=== PATIENT | male | born 1955 | race Hispanic/Latino ===

== ENCOUNTER 2019-05-15 14:53 | Emergency (ER) | payer MEDICARE ==
[~2019-05-15] VITALS: Ht 182.9 cm; Wt 77.1 kg
[~2019-05-15 14:53] MED LIST: AMLODIPINE BESYL5 MG PEG; DUO NEB; LACTULOSE; NIFEDIPINE PO; NOVOLOG 3M100 UNITS/; NOVOLOG MIX 70-33 M1; PHENERGAN25 M3 PO; PROVENTIL INH; Z.0.AMLODIPINE BESY1 PO; Z.0.CLONIDINE HCL0.2 PO; Z.0.HYDRALAZINE HCL2 GT; Z.0.LASIX40 MG PO; Z.0.LEVAQUIN500 MG PO; Z.0.LIPITOR40 MG PO; Z.0.PRAVACHOL20 MG PO; Z.0.REGLAN10 MG PO; [UNRECOGNIZED DRUG - OTHER] IM; [UNRECOGNIZED DRUG - OTHER] PO; [UNRECOGNIZED DRUG - OTHER] RC
== END 2019-05-15 15:38 | disposition left against medical advice (07) ==
LOC: ER 14:53
DX: N28.1 Cyst of kidney, acquired (principal)

== ENCOUNTER 2023-11-06 23:27 | Emergency (ER) | payer MEDICARE ==
[~2023-11-06] VITALS: Ht 182.9 cm; Wt 77.1 kg
[~2023-11-06 23:27] MED LIST changes: +CEFPODOXIME PR200 MG PO
[2023-11-07] MEDS ORDERED: HYDROCODONE/APAP 5MG-325MG TAB PO ONE
[2023-11-07] MEDS ORDERED: ONDANSETRON HCL 4 MG ORAL DISINTEGRATING TAB PO ONE
[2023-11-07] MEDS ORDERED: ONDANSETRON ODT4 MG PO (00:06)
[2023-11-07] MEDS ORDERED: COLACE100 M1 PO (00:06)
[2023-11-07] MEDS ORDERED: HYDROCODON-ACE1 EA12 PO ×2 (00:06→00:07)
[2023-11-07] MEDS ORDERED: IBUPROFEN200 MG PO (00:06)
[2023-11-07] MEDS ORDERED: ONDANSETRON HCL 4 MG ORAL DISINTEGRATING TAB ONE (00:51)
[2023-11-07] MEDS ORDERED: HYDROCODONE/APAP 5MG-325MG TAB ONE (00:51)
[2023-11-07 01:15] VITALS: BP 125/63; PULSE 52; RESP 18; TEMP 97.8; O2SAT 100
== END 2023-11-07 01:15 | disposition home or self-care (01) ==
LOC: FSED 23:33
DX: M47.816 Spondylosis without myelopathy or radiculopathy, lumbar region (principal); I69.354 Hemiplegia and hemiparesis following cerebral infarction affecting left non-dominant side; I12.0 Hypertensive chronic kidney disease with stage 5 chronic kidney disease or end stage renal disease; E11.22 Type 2 diabetes mellitus with diabetic chronic kidney disease; N18.6 End stage renal disease; Z99.2 Dependence on renal dialysis; K21.9 Gastro-esophageal reflux disease without esophagitis; E78.00 Pure hypercholesterolemia, unspecified
CPT/HCPCS: 74176; 99283; Q0162

== ENCOUNTER 2024-09-26 23:44 | Emergency (ER) | payer MEDICARE ==
[~2024-09-26] VITALS: Ht 182.9 cm; Wt 77.1 kg
[~2024-09-26 23:44] MED LIST changes: +COLACE100 M1 PO; +HYDROCODON-ACE1 EA12 PO; +IBUPROFEN200 MG PO; +ONDANSETRON ODT4 MG PO
[2024-09-26 23:49] VITALS: PULSE 80; RESP 18; TEMP 98.3
[2024-09-27] MEDS ORDERED: CLEOCIN HCL150 MG PO (00:16)
[2024-09-27 00:20] VITALS: BP 145/65; PULSE 80; RESP 18; TEMP 98.3; O2SAT 98
== END 2024-09-27 00:28 | disposition home or self-care (01) ==
LOC: FSED 09-27 00:04
DX: K04.7 Periapical abscess without sinus (principal); K12.2 Cellulitis and abscess of mouth; I12.9 Hypertensive chronic kidney disease with stage 1 through stage 4 chronic kidney disease, or unspecified chronic kidney disease; E11.22 Type 2 diabetes mellitus with diabetic chronic kidney disease; N18.9 Chronic kidney disease, unspecified; Z99.2 Dependence on renal dialysis; K21.9 Gastro-esophageal reflux disease without esophagitis; E78.00 Pure hypercholesterolemia, unspecified
CPT/HCPCS: 99282

== ENCOUNTER 2025-05-27 18:52 | Emergency (ER) | payer MEDICARE ==
[~2025-05-27] VITALS: Ht 182.9 cm; Wt 75.7 kg
[~2025-05-27 18:52] MED LIST changes: +CLEOCIN HCL150 MG PO
[2025-05-27 18:58] VITALS: PULSE 77; RESP 18; TEMP 97.7
[2025-05-27] MEDS ORDERED: CEPHALEXIN500 MG PO (20:40)
[2025-05-27 20:43] VITALS: BP 169/79; PULSE 73; RESP 18; TEMP 97.7; O2SAT 100
== END 2025-05-27 20:51 | disposition home or self-care (01) ==
LOC: FSED 19:06
DX: R30.0 Dysuria (principal); N39.0 Urinary tract infection, site not specified; I12.0 Hypertensive chronic kidney disease with stage 5 chronic kidney disease or end stage renal disease; E11.22 Type 2 diabetes mellitus with diabetic chronic kidney disease; N18.6 End stage renal disease; Z99.2 Dependence on renal dialysis; Z95.5 Presence of coronary angioplasty implant and graft
CPT/HCPCS: 81003; 99283